=== PATIENT | female | born 1955 | race Caucasian/White ===

== ENCOUNTER 2019-04-30 05:15 | Inpatient (IN) | payer OTHER ==
[2019-04-30] MEDS ORDERED: ONDANSETRON 4 MG/2 ML VIAL IVPUSH ONE ×2 (05:23→07:57)
[2019-04-30] MEDS ORDERED: SODIUM CHLORIDE 0.9% 500 ML INFUS.BAG IV ONE (05:23)
--- NOTE | 2019-04-30 05:27 | PDOC ---
Attending Attestation - Resident Resident Name: Christoph Reavesnirmaladylon - ED Attending Attestation I have performed the following: I have examined & evaluated the patient, The case was reviewed & discussed with the resident, I agree w/resident's findings & plan - HPI HPI: 04/30/19 19:58 see resident hpi - Physicial Exam PE: 04/30/19 19:58 agree with resident rxam - Medical Decision Making 04/30/19 19:58 64-year-old female with syncopal episode and vomiting, visiting from [place] Patient had a witnessed syncopal episode in the emergency department as well as vomiting in the ED Case signed out to dayshift pending labs and imaging
--- NOTE | 2019-04-30 06:06 | PDOC ---
History of Present Illness - History of Present Illness Initial Comments: 64 year old female with PMH of HTN, depression, and GERD presenting from home after syncopizing on the bathroom floor. States that she arrived from [place] ( lives in [place]) on Sunday and visited her mother at [facility] where she ate some vegetarian chile. A few hours afterwards she began to feel nauseous and went to the bathroom, she then woke up on the floor and had a bump on the back of her head. This happened at 3:30 PM and the patient went back to her bed. Denies any postictal period or incontinence at the time. She felt generally weak and lightheaded but denies vertiginous symptoms, visual symptoms, chest pain, fevers , or other symptoms. She denies any recent illness but does state that her mother has been dealing with diarrhea for an unknown amount of time and that the bathroom in her mother's apartment had a putrid smell of diarrhea. 04/30/19 06:25 <Puja Reaves - Last Filed: 04/30/19 06:25> <Nestor Stone - Last Filed: 04/30/19 10:30> - General Chief Complaint: Injury Stated Complaint: FALL Time Seen by Provider: 04/30/19 05:26 Past History - Psycho Social/Smoking Cessation Hx Smoking History: Never smoked Hx Alcohol Use: No Drug/Substance Use Hx: No <Puja Reaves - Last Filed: 04/30/19 06:25> <Nestor Stone - Last Filed: 04/30/19 10:30> - Past Medical History Allergies/Adverse Reactions: Allergies Allergy/AdvReac Type Severity Reaction Status Date / Time Penicillins Allergy Verified 04/30/19 05:32 Sulfa (Sulfonamide Allergy Verified 04/30/19 05:33 Antibiotics) *Physical Exam - Vital Signs Last Vital Signs Temp Pulse Resp BP Pulse Ox 96 H 18 151/75 96 04/30/19 05:30 04/30/19 05:30 04/30/19 05:30 04/30/19 05:30 <Puja Reaves - Last Filed: 04/30/19 06:25> - Vital Signs Last Vital Signs Temp Pulse Resp BP Pulse Ox 98.3 F 96 H 18 151/75 96 04/30/19 05:30 04/30/19 05:30 04/30/19 05:30 04/30/19 05:30 04/30/19 05:30 <Nestor Stone - Last Filed: 04/30/19 10:30> ED Treatment Course - RADIOLOGY Radiology Studies Ordered: Category Date Time Status CERVICAL SPINE CT W/O CONTR [CT] Stat CT Scan 04/30/19 05:[address] WITHOUT CONTRAST [CT] Stat CT Scan 04/30/19 05:21 Taken <Puja Reaves - Last Filed: 04/30/19 06:25> - LABORATORY CBC & Chemistry Diagram: 04/30/19 06:27 04/30/19 06:27 - ADDITIONAL ORDERS Additional order review: Laboratory Results 04/30/19 04/30/19 06:27 06:27 Sodium 141 Potassium 3.6 Chloride 106 Carbon Dioxide 26 Anion Gap 10 BUN 21.6 H Creatinine 0.8 Est GFR (CKD-EPI)AfAm 89.04 Est GFR (CKD-EPI)NonAf 76.83 Random Glucose 130 H Calcium 9.1 Total Bilirubin 0.6 AST 18 ALT 28 Alkaline Phosphatase 53 Creatine Kinase 108 Troponin I < 0.02 Total Protein 7.1 Albumin 4.2 Lipase 60 L 04/30/19 06:27 RBC 4.81 MCV 79.1 L MCHC 32.4 RDW 16.0 H MPV 9.2 Neutrophils % No Result Required. Lymphocytes % No Result Required. - RADIOLOGY Radiology Studies Ordered: Category Date Time Status CHEST X-RAY PORTABLE* [RAD] Stat Radiology 04/30/19 07:50 Completed - Medications Given in the ED: ED Medications Discontinued Medications Generic Name Dose Route Start Last Admin Trade Name Freq PRN Reason Stop Dose Admin Ondansetron HCl 4 mg 04/30/19 05:23 04/30/19 06:33 Zofran Injection IVPUSH 04/30/19 05:24 4 mg ONCE ONE Administration Ondansetron HCl 4 mg 04/30/19 07:57 04/30/19 08:02 Zofran Injection IVPUSH 04/30/19 07:58 4 mg ONCE ONE Administration Sodium Chloride 1,000 ml 04/30/19 05:23 04/30/19 06:33 Normal Saline - IV 04/30/19 05:24 1,000 ml ONCE ONE Administration <Nestor Stone - Last Filed: 04/30/19 10:30> Discharge <Puja Reaves - Last Filed: 04/30/19 06:25> - Discharge Information Problems reviewed: Yes - Admission Yes <Nestor Stone - Last Filed: 04/30/19 10:30> - Discharge Information Clinical Impression/Diagnosis: Dehydration Syncope Qualifiers: Syncope type: unspecified Qualified Code(s): R55 - Syncope and collapse Condition: Fair
[2019-04-30] MEDS ORDERED: HEPARIN NA (PORCINE) 5,000 UNITS/ML 1ML VIAL ONE (06:36)
[2019-04-30 06:50] LABS: HEMOGLOBIN 12.3 GM/dL (10.7-15.3); MCH 25.6 pg (25.7-33.7); MCHC 32.4 g/dl (32.0-36.0); MEAN CELL VOLUME 79.1 fl (80-96); MEAN PLT VOLUME 9.2 fl (7.5-11.1); PLATELET COUNT 245 K/MM3 (134-434); RBC 4.81 M/mm3 (3.60-5.2); WHITE BLOOD COUNT 16.7 K/mm3 (4.0-10.0)
[2019-04-30 07:20] LABS: ALBUMIN 4.2 g/dl (3.4-5.0); BILIRUBIN,TOTAL 0.6 mg/dL (0.2-1); BLOOD UREA NITROGEN 21.6 mg/dL (7-18); CALCIUM 9.1 mg/dL (8.5-10.1); CREATININE 0.8 mg/dL (0.55-1.3); LIPASE 60 U/L (73-393); POTASSIUM 3.6 mmol/L (3.5-5.1); TOT PROT 7.1 g/dl (6.4-8.2)
[2019-04-30] MEDS ORDERED: SODIUM CHLORIDE 1,000 ML IV STA (07:56)
[2019-04-30] MEDS ORDERED: ONDANSETRON 4 MG/2 ML VIAL ONE (07:58)
--- NOTE | 2019-04-30 09:56 | EKG ---
Test Reason : Blood Pressure : / mmHG Vent. Rate : 062 BPM Atrial Rate : 062 BPM P-R Int : 182 ms QRS Dur : 090 ms QT Int : 428 ms P-R-T Axes : 052 005 058 degrees QTc Int : 434 ms NORMAL SINUS RHYTHM NORMAL ECG NO PREVIOUS ECGS AVAILABLE Confirmed by DARYL DODSON MD ([id number]) on 04/30/2019 9:55:24 AM Referred By: Confirmed By:DARYL DODSON MD
[2019-04-30 09:59] LABS: ANISOCYTOSIS 0; MACROCYTOSIS 0; PLATELET ESTIMATE NORMAL
[2019-04-30] MEDS ORDERED: ONDANSETRON 4 MG/2 ML VIAL IVPUSH PRN (10:45)
[2019-04-30] MEDS ORDERED: SODIUM PHOSPHATE/NA BIPHOS 133 ML ENEMA PR ONE (10:49)
[2019-04-30] MEDS ORDERED: SENNOSIDES 8.6MG TABLET (FP) PO PRN (10:49)
[2019-04-30] MEDS ORDERED: DOCUSATE SODIUM 100 MG CAPSULE (FP) PO ONE (11:11)
[2019-04-30] MEDS ORDERED: AZITHROMYCIN IVPB 500 MG/250 ML BAG IVPB ONE (11:12)
--- NOTE | 2019-04-30 11:31 | HP ---
CHIEF COMPLAINT: Syncope PCP: In [place] HISTORY OF PRESENT ILLNESS: Pt. is a 64 y.o. F w/ PMHx. of HTN, Depression, GERD , stress incontinence, L. Breast CA (s/p chemotherapy and radiation), and lymphedema presents after having a syncopal episode. Pt. states that while she was visiting her mother at [facility], who was having fould smelling "red diarrhea," she became nauseous and went to the bathroom to vomit. Pt. denies actually vomiting and states that she only remembers her mother waking her up at 3:30 pm whereupon she noticed a bump on the back of her head. Pt. does not recall the events but endorses that she bit her lip and leaked urine during that time. Pt. denies ever having seizures in the past. Pt. states that she has been drinking less fluids since she traveled to the [facility]. Pt. had vegetarian [place] prior to the vomiting episode. Pt. endorses constipation, last passed a "few mark" yesterday. Pt. was dizzy prior to the episode but denies any current dizziness, chest pain, shortness of breath, abdominal pain or nausea. In the ED Pt. had non -bloody emesis x 2 and had a syncopal episode with each event. Pt. endorses that her father suffered from vaso-vagal syncope. ER course was notable for: (1)NS x 1 L, Zofran x2 (2) Head CT -, CT CSpine - (3) CXR Recent Travel: Pt. flew in from [place] to visit her mother at [facility] and intends on flying out on Sunday. PAST MEDICAL HISTORY: As above PAST SURGICAL HISTORY: Bladder Sling, L. Breast lumpectomy, Hysterectomy Social History: Smokin.5 PPD x 21 years, Quit in 1999 Alcohol: Socially, drinks 1 glass of wine on occasion Drugs: Denies currently, Remote Marijuana use Allergies Penicillins Allergy (Verified 04/30/19 05:32) Sulfa (Sulfonamide Antibiotics) Allergy (Verified 04/30/19 05:33) HOME MEDICATIONS: Home Medications Medication Instructions Recorded Escitalopram Oxalate [Lexapro -] 15 mg PO DAILY 04/30/19 Esomeprazole Magnesium 20 mg PO DAILY 04/30/19 Hydrochlorothiazide [Hctz -] 12.5 mg PO DAILY 04/30/19 Spironolactone [Aldactone] 25 mg PO DAILY 04/30/19 REVIEW OF SYSTEMS As above PHYSICAL EXAMINATION Vital Signs - 24 hr 04/30/19 05:30 Temperature 98.3 F Pulse Rate 96 H Respiratory 18 Rate Blood Pressure 151/75 O2 Sat by Pulse 96 Oximetry (%) GENERAL: Awake, alert, and fully oriented, in no acute distress. HEAD: Posterior scalp hematoma EYES: Extraocular movements intact, sclera anicteric, conjunctiva clear. EARS, NOSE, THROAT: Ears normal, nares patent, oropharynx clear without exudates. Dry mucous membranes. NECK: Normal range of motion, supple without lymphadenopathy, JVD, or masses. No carotid Bruit LUNGS: Breath sounds equal, clear to auscultation bilaterally. No wheezes, and no crackles. No accessory muscle use. HEART: Tachycardic, regular rate and rhythm, normal S1 and S2 without murmur ABDOMEN: Soft, nontender, not distended, normoactive bowel sounds, no guarding, no rebound, no masses. MUSCULOSKELETAL: Normal range of motion at all joints. No bony deformities or tenderness. No CVA tenderness. UPPER EXTREMITIES: 2+ radial pulses, warm, well-perfused. No cyanosis. No clubbing. Left upper extremity lymphedema. LOWER EXTREMITIES: 2+ dorsal pedal pulses, warm, well-perfused. No calf tenderness. No peripheral edema. NEUROLOGICAL: Cranial nerves II-XII grossly intact. Normal speech. Gait not assessed. PSYCHIATRIC: Cooperative. Good eye contact. Appropriate mood and affect. SKIN: Warm, dry, normal turgor, no rashes or lesions noted, normal capillary refill. Laboratory Results - last 24 hr 04/30/19 04/30/19 04/30/19 06:27 06:27 06:27 WBC 16.7 H RBC 4.81 Hgb 12.3 Hct 38.0 MCV 79.1 L MCH 25.6 L MCHC 32.4 RDW 16.0 H Plt Count 245 MPV 9.2 Absolute Neuts (auto) 15.1 H Neutrophils % No Result Required. Neutrophils % (Manual) 85.0 H Band Neutrophils % 6.0 Lymphocytes % No Result Required. Lymphocytes % (Manual) 3.0 L Monocytes % (Manual) 6 Eosinophils % (Manual) 0.0 Basophils % (Manual) 0.0 Myelocytes % (Man) 0 Promyelocytes % (Man) 0 Blast Cells % (Manual) 0 Nucleated RBC % 0 Metamyelocytes 0 Hypochromia 0 Platelet Estimate Normal Polychromasia 0 Poikilocytosis 0 Anisocytosis 0 Microcytosis 0 Macrocytosis 0 Sodium 141 Potassium 3.6 Chloride 106 Carbon Dioxide 26 Anion Gap 10 BUN 21.6 H Creatinine 0.8 Est GFR (CKD-EPI)AfAm 89.04 Est GFR (CKD-EPI)NonAf 76.83 Random Glucose 130 H Calcium 9.1 Total Bilirubin 0.6 AST 18 ALT 28 Alkaline Phosphatase 53 Creatine Kinase 108 Troponin I < 0.02 Total Protein 7.1 Albumin 4.2 Lipase 60 L ASSESSMENT/PLAN: Pt. is a 64 y.o. F w/ PMHx. of HTN, Depression, GERD, stress incontinence, L. Breast CA (s/p chemotherapy and radiation), and lymphedema presents after having a syncopal episode. #Syncope Head CT - CSpine CT negative for acute pathology, did show chronic changes including C6- C7 central spinal stenosis EKG: NSR, 62 bpm, QTc: 434 Orthostatics Positive, Supine: 151/70 HR 96, Sittin/67 HR: 106 f/u Carotid Doppler f/u Echo CXR: shows possible RML vs. RLL infiltrates and diffuse haziness; will order CTA to r/o PE. c/w IVF and encourage PO intake Trop Negative Family Hx. of vaso-vagal syncope noted in addition to syncope happening 3 times each associated with vomiting. #HTN hold HCTZ and Aldactone continue to monitor BP #Leukocytosis WBC: 16.7 (85% Neutrophils) CXR appreciated, Pt. has been afebrile, likely secondary to inflammatory reaction to hematoma. Low threshold to initiate CAP antibiotics pending clinical status as Pt. may have aspirated during syncopal episodes #Constipation will give Fleet enema, Colace and Senna #Depression c/w Lexapro #GERD c/w Esomeprazole #FEN NS @ 100 monitor electrolytes and replete as needed Sodium controlled diet #DVT Ppx. Lovenox 40 SQ Visit type - Emergency Visit Emergency Visit: Yes ED Registration Date: 04/30/19 Care time: The patient presented to the Emergency Department on the above date and was hospitalized for further evaluation of their emergent condition. - New Patient This patient is new to me today: Yes Date on this admission: 04/30/19 - Critical Care Critical Care patient: No ATTENDING PHYSICIAN STATEMENT I saw and evaluated the patient. I reviewed the resident's note and discussed the case with the resident. I agree with the resident's findings and plan as documented. SUBJECTIVE: OBJECTIVE: ASSESSMENT AND PLAN:
[2019-04-30] MEDS: DOCUSATE SODIUM 100 MG CAPSULE (FP) PO SCH ×2 (11:37→21:08)
[2019-04-30] MEDS: ENOXAPARIN NA (PORCINE) 40 MG/0.4 ML DISP.SYRIN SQ SCH (11:41)
--- NOTE | 2019-04-30 13:53 | ECHO ---
Name: BREAAN ESPOSITO Exam:Adult Echocardiogram Study Date: 04/30/2019 12:39 PM Age: 64 yrs Height: 66 in Weight: 174 lb BSA: 1.9 m2 MMode/2D Measurements & Calculations IVSd: 1.00 cm Ao root diam: 2.8 cm LVIDd: 4.1 cm LA dimension: 3.3 cm LVIDs: 2.9 cm LVPWd: 1.4 cm LVPWs: 1.4 cm EDV(Teich): 73.5 ml ESV(Teich): 33.2 ml LVOT diam: 2.0 cm RV S Julian: 15.3 cm/sec Doppler Measurements & Calculations MV E max julian: 67.6 cm/sec Ao V2 max: 182.4 cm/sec MV A max julian: 111.1 cm/sec Ao max P.3 mmHg MV E/A: 0.61 MV dec time: 0.08 sec SHITAL(V,D): 2.0 cm2 LV V1 max P.8 mmHg TR max julian: 235.5 cm/sec LV V1 max: 119.9 cm/sec TR max P.2 mmHg PA V2 max: 139.8 cm/sec Med Peak E' Julian: 7.8 cm/sec PA max P.8 mmHg Med E/e': 8.7 Lat Peak E' Julian: 9.4 cm/sec Lat E/e': 7.2 Procedure A two-dimensional transthoracic echocardiogram with color flow and Doppler was performed. Left Ventricle The left ventricular size, thickness and function are normal. The left ventricular ejection fraction is normal. E/A reversal consistent with but not diagnostic of poor LV compliance. The left ventricular w all motion is normal. Right Ventricle The right ventricle is normal in size and function. A moderator band is seen in the right ventricle. Atria Normal left and right atrial size and function. Mitral Valve There is trivial mitral valve thickening. There is no mitral valve stenosis. There is trace to mild m itral regurgitation. Tricuspid Valve There is trivial tricuspid valve thickening. There is no tricuspid stenosis. There is trace tricuspid regurgitation. Right ventricular systolic pressure is normal. Aortic Valve The aortic valve is normal in structure and function. There is mild aortic valve thickening. There is mild aortic sclerosis.;. No hemodynamically significant valvular aortic stenosis. No aortic regurgitation is present. Pulmonic Valve The pulmonic valve is not well visualized. Great Vessels The aortic root is normal size. Pericardium/Pleura There is no pericardial effusion. Interpretation Summary The left ventricular size, thickness and function are normal The left ventricular ejection fraction is normal. The left ventricular wall motion is normal. There is trace to mild mitral regurgitation. There is trace tricuspid regurgitation. Right ventricular systolic pressure is normal. A moderator band is seen in the right ventricle. E/A reversal consistent with but not diagnostic of poor LV compliance There is mild aortic valve thickening. There is mild aortic sclerosis.; MD Luiz Ridley 04/30/2019 01:52 PM
--- NOTE | 2019-04-30 15:17 | PN ---
Teaching Attending Note Name of Resident: Benedicto Walters ATTENDING PHYSICIAN STATEMENT I saw and evaluated the patient. I reviewed the resident's note and discussed the case with the resident. I agree with the resident's findings and plan as documented. SUBJECTIVE: Pt. is a 64 y.o. F w/ PMHx. of HTN, Depression, GERD, stress incontinence, L. Breast CA (s/p chemotherapy and radiation),2002 and lymphedema presents after having a syncopal episode. Pt. states that while she was visiting her mother at [facility], who was having fould smelling "red diarrhea," she became nauseous and went to the bathroom to vomit. Pt. denies actually vomiting and states that she only remembers her mother waking her up at 3:30 pm whereupon she noticed a bump on the back of her head. she doesnt recall the events, no jerking of hands was noted, . Pt. denies ever having seizures in the past. Pt. states that she has been drinking less fluids since she traveled to the [facility]. Pt. had vegetarian [place] prior to the vomiting episode. Pt. endorses constipation no diarroea. Pt. was dizzy prior to the episode but denies any current dizziness, chest pain, shortness of breath, abdominal pain or nausea. In the ED Pt. had non-bloody emesis x 2 and had a syncopal episode with each event. Pt. states that her father suffered from vaso-vagal syncope. OBJECTIVE: a very pleasant middle aged woman, appears comfortable, nad, alert awake and oriented to 3, vitals stable, neck supple no jvd, cvs s1/s2/0 chest ctab abd benign ext no c/c/ edema L forearm, neuro non focal, ASSESSMENT AND PLAN: Pt. is a 64 y.o. F w/ PMHx. of HTN, Depression, GERD, stress incontinence, L. Breast CA (s/p chemotherapy and radiation), and lymphedema presents after having a syncopal episode. 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 unknown etiology, cta is negative , no embolism, carotid doppler is negative, Trop Negative will monitor on tele for 24 h, and check the cardiac markers, and hold diuretics , and supplement k , get the cardiology consult, 2)HTN hold HCTZ and Aldactone continue to monitor BP 3)Leukocytosis WBC: 16.7 (85% Neutrophils) is febrile , and asymptomatic, will check urine and c&s , and also repeat cbc, and give one dose of levaquin, and will check repeat, r.o sepsis as cause of the syncope, 4)Depression c/w Lexapro 5)GERD c/w Esomeprazole #DVT Ppx. Lovenox 40 SQ
[2019-04-30] MEDS: SODIUM CHLORIDE 1,000 ML IV SCH (15:41)
[2019-04-30] MEDS ORDERED: POTASSIUM CHLORIDE TABS 20 MEQ TABLET.ER (FP) PO ONE (16:19)
[2019-04-30] MEDS ORDERED: ACETAMINOPHEN 325 MG TABLET (FP) PO PRN (17:10)
[2019-04-30 17:16] VITALS: BMI 27.9
[2019-04-30] MEDS: PANTOPRAZOLE 20 MG TABLET PO SCH (18:02)
[2019-05-01 06:49] LABS: BASO % 0.5 % (0-2.0); EOS % 0.7 % (0-4.5); HEMATOCRIT 31.3 % (32.4-45.2); HEMOGLOBIN 10.1 GM/dL (10.7-15.3); LYMPH % 18.6 % (8-40); MCH 25.5 pg (25.7-33.7); MCHC 32.4 g/dl (32.0-36.0); MEAN CELL VOLUME 78.7 fl (80-96); MEAN PLT VOLUME 9.2 fl (7.5-11.1); MONO % 8.1 % (3.8-10.2); NEUT % 72.1 % (42.8-82.8); PLATELET COUNT 192 K/MM3 (134-434); RBC 3.97 M/mm3 (3.60-5.2); WHITE BLOOD COUNT 8.5 K/mm3 (4.0-10.0)
[2019-05-01 07:10] LABS: BLOOD UREA NITROGEN 9.4 mg/dL (7-18); CALCIUM 7.6 mg/dL (8.5-10.1); CREATININE 0.6 mg/dL (0.55-1.3); PHOSPHOROUS 2.8 mg/dL (2.5-4.9); POTASSIUM 3.2 mmol/L (3.5-5.1)
[2019-05-01 08:51] LABS: URINE APPEARANCE CLEAR; URINE BILIRUBIN NEGATIVE (NEGATIVE); URINE COLOR YELLOW; URINE GLUCOSE (UA) NEGATIVE (NEGATIVE); URINE KETONE NEGATIVE (NEGATIVE); URINE LEUK ESTERASE NEGATIVE (NEGATIVE); URINE NITRITE NEGATIVE (NEGATIVE); URINE PROTEIN NEGATIVE (NEGATIVE)
[2019-05-01] MEDS: PANTOPRAZOLE 20 MG TABLET PO SCH (10:07)
[2019-05-01] MEDS: ENOXAPARIN NA (PORCINE) 40 MG/0.4 ML DISP.SYRIN SQ SCH (10:07)
[2019-05-01] MEDS: DOCUSATE SODIUM 100 MG CAPSULE (FP) PO SCH (10:08)
[2019-05-01] MEDS: SODIUM CHLORIDE 1,000 ML IV SCH (10:08)
[2019-05-01] MEDS ORDERED: POTASSIUM CHLORIDE TABS 20 MEQ TABLET.ER (FP) PO ONE (11:52)
[2019-05-01] MEDS ORDERED: POTASSIUM CHLORIDE TABS 20 MEQ TABLET.ER (FP) PO SCH (12:00)
[2019-05-01] MEDS: KCL 10 MEQ IVPB 10 MEQ/100 ML INFUS.BAG IVPB SCH ×3 (12:43→17:45)
--- NOTE | 2019-05-01 16:45 | PN ---
Physical Exam: SUBJECTIVE: Patient seen and examined NAEON Tele: 10beats of Vtach Denies nausea, dizziness, lightheadedness, chest pain/pressure, SOB OBJECTIVE: Vital Signs Period Temp Pulse Resp BP Sys/Garcia Pulse Ox Last 24 Hr 98.0 F-99.1 F 75-103 18-18 117-154/51-89 95-98 GENERAL: The patient is awake, alert, and fully oriented, in no acute distress. HEAD: NC. Right posterior scalp hematoma w/ significant TTP EYES: PERRL, extraocular movements intact, sclera anicteric, conjunctiva clear. No ptosis. ENT: Ears normal, nares patent, oropharynx clear without exudates, moist mucous membranes. NECK: Trachea midline, full range of motion, supple. LUNGS: Breath sounds equal, clear to auscultation bilaterally, no wheezes, no crackles, no accessory muscle use. HEART: Regular rate and rhythm, S1, S2 without murmur, rub or gallop. ABDOMEN: Soft, nontender, nondistended, normoactive bowel sounds, no guarding, no rebound. EXTREMITIES: 2+ pulses, warm, well-perfused, no edema. LUE with lymphedema sleeve in place NEUROLOGICAL: Cranial nerves II through XII grossly intact. Normal speech. PSYCH: Normal mood, normal affect. SKIN: Warm, dry, normal turgor, no rashes or lesions noted Laboratory Results - last 24 hr 05/01/19 05/01/19 05/01/19 05:47 05:47 08:00 WBC 8.5 RBC 3.97 Hgb 10.1 L Hct 31.3 L D MCV 78.7 L MCH 25.5 L MCHC 32.4 RDW 16.0 H Plt Count 192 D MPV 9.2 Absolute Neuts (auto) 6.2 Neutrophils % 72.1 Lymphocytes % 18.6 Monocytes % 8.1 Eosinophils % 0.7 Basophils % 0.5 Nucleated RBC % 0 Sodium 143 Potassium 3.2 L Chloride 112 H Carbon Dioxide 27 Anion Gap 5 L BUN 9.4 Creatinine 0.6 Est GFR (CKD-EPI)AfAm 110.08 Est GFR (CKD-EPI)NonAf 94.98 Random Glucose 105 Calcium 7.6 L Phosphorus 2.8 Magnesium 2.0 Urine Color Yellow Urine Appearance Clear Urine pH 6.0 Ur Specific [place] 1.011 Urine Protein Negative Urine Glucose (UA) Negative Urine Ketones Negative Urine Blood Negative Urine Nitrite Negative Urine Bilirubin Negative Urine Urobilinogen 1.0 Ur Leukocyte Esterase Negative Active Medications Generic Name Dose Route Start Last Admin Trade Name Tanq PRN Reason Stop Dose Admin Acetaminophen 650 mg 04/30/19 17:10 04/30/19 18:02 Tylenol - PO 650 mg Q6H PRN Administration Fever Or Pain Docusate Sodium 100 mg 04/30/19 11:00 05/01/19 10:08 Colace - PO 100 mg BID KAPIL Administration Enoxaparin Sodium 40 mg 04/30/19 11:00 05/01/19 10:07 Lovenox - SQ 40 mg DAILY KAPIL Administration Sodium Chloride 1,000 mls @ 100 mls/hr 04/30/19 10:30 05/01/19 10:08 Normal Saline - IV 05/01/19 20:29 100 mls/hr ASDIR KAPIL Administration Ondansetron HCl 4 mg 04/30/19 10:45 04/30/19 18:37 Zofran Injection IVPUSH 4 mg Q6H PRN Administration NAUSEA Pantoprazole Sodium 20 mg 04/30/19 16:45 05/01/19 10:07 Protonix - PO 20 mg DAILY KAPIL Administration Senna 2 tab 04/30/19 10:49 Senna - PO HS PRN CONSTIPATION ASSESSMENT/PLAN: 64 y.o. F w/ PMHx. of HTN, Depression, GERD, stress incontinence, L. Breast CA ( s/p chemotherapy and radiation), and LUE lymphedema presents after having a syncopal episode and hitting head on floor after vomiting. CTH showing Right- sided scalp hematoma. CT-cspine w/ DJD and C6-C7 central spinal stenosis. Asymptomatic from spinal stenosis. Carotid duplex neg for significant stenosis. Echo was grossly normal. CTA neg for PE. CXR neg. Received levaquin x1 for HCAP , abx stopped. Tele monitor showing Vtach [id number], prompted Cardio(Guille) consult. #Syncope likely 2/2 vasovagal > Head CT: Right partietal scalp hematoma > CSpine CT: negative for acute pathology, did show chronic changes including C6 -C7 central spinal stenosis > EKG: NSR, 62 bpm, QTc: 434 > Orthostatics Positive, Supine: 151/70 HR 96, Sittin/67 HR: 106 > Carotid Doppler: neg for carotid stenosis > Echo: normal > CXR: shows possible RML vs. RLL infiltrates and diffuse haziness; will order CTA to r/o PE. c/w IVF and encourage PO intake Trop Negative Family Hx. of vaso-vagal syncope noted in addition to syncope happening 3 times each associated with vomiting. #HTN hold HCTZ and Aldactone continue to monitor BP #Leukocytosis --improved WBC: 16.7 (85% Neutrophils) --> 8.5 CXR appreciated, Pt. has been afebrile, likely secondary to inflammatory reaction to hematoma. Low threshold to initiate CAP antibiotics pending clinical status as Pt. may have aspirated during syncopal episodes - abx stopped on 05/01/19 #Constipation -s/p Fleet enema, Colace and Senna #Depression c/w Lexapro #GERD c/w Esomeprazole #FEN NS @ 100 monitor electrolytes and replete as needed Sodium controlled diet Visit type - Emergency Visit Emergency Visit: No - New Patient This patient is new to me today: Yes Date on this admission: 05/01/19 - Critical Care Critical Care patient: No ATTENDING PHYSICIAN STATEMENT I saw and evaluated the patient. I reviewed the resident's note and discussed the case with the resident. I agree with the resident's findings and plan as documented. SUBJECTIVE: OBJECTIVE: ASSESSMENT AND PLAN:
--- NOTE | 2019-05-01 20:38 | PN ---
Teaching Attending Note Name of Resident: Adam Wiggins ATTENDING PHYSICIAN STATEMENT I saw and evaluated the patient. I reviewed the resident's note and discussed the case with the resident. I agree with the resident's findings and plan as documented. SUBJECTIVE: patient is feeling better with no acute distress, she doesn't recall what happened. OBJECTIVE: Vital Signs Temperature 99.1 F 05/01/19 18:00 Pulse Rate 77 05/01/19 18:00 Respiratory Rate 18 05/01/19 18:00 Blood Pressure 132/56 L 05/01/19 18:00 O2 Sat by Pulse Oximetry (%) 95 05/01/19 09:00 GENERAL: The patient is awake, alert, and fully oriented, in no acute distress. HEAD: Normal with no signs of trauma. EYES: PERRL, extraocular movements intact, sclera anicteric, conjunctiva clear. ENT: Ears normal, oropharynx clear without exudates, moist mucous membranes. NECK: Trachea midline, full range of motion, supple. LUNGS: Breath sounds equal, clear to auscultation bilaterally, no wheezes, no crackles, no accessory muscle use. HEART: Regular rate and rhythm, S1, S2 without murmur, rub or gallop. ABDOMEN: Soft, nontender, nondistended, normoactive bowel sounds, no guarding, no rebound, no hepatosplenomegaly, no masses. EXTREMITIES: 2+ pulses, warm, well-perfused, no edema. NEUROLOGICAL: Cranial nerves II through XII grossly intact. Normal speech, gait not observed. PSYCH: Normal mood, normal affect. SKIN: Warm, dry, normal turgor, no rashes or lesions noted CBCD WBC 8.5 K/mm3 (4.0-10.0) 05/01/19 05:47 RBC 3.97 M/mm3 (3.60-5.2) 05/01/19 05:47 Hgb 10.1 GM/dL (10.7-15.3) L 05/01/19 05:47 Hct 31.3 % (32.4-45.2) L D 05/01/19 05:47 MCV 78.7 fl (80-96) L 05/01/19 05:47 MCHC 32.4 g/dl (32.0-36.0) 05/01/19 05:47 RDW 16.0 % (11.6-15.6) H 05/01/19 05:47 Plt Count 192 K/MM3 (134-434) D 05/01/19 05:47 MPV 9.2 fl (7.5-11.1) 05/01/19 05:47 CMP Sodium 143 mmol/L (136-145) 05/01/19 05:47 Potassium 3.2 mmol/L (3.5-5.1) L 05/01/19 05:47 Chloride 112 mmol/L (98-107) H 05/01/19 05:47 Carbon Dioxide 27 mmol/L (21-32) 05/01/19 05:47 Anion Gap 5 MMOL/L (8-16) L 05/01/19 05:47 BUN 9.4 mg/dL (7-18) 05/01/19 05:47 Creatinine 0.6 mg/dL (0.55-1.3) 05/01/19 05:47 Random Glucose 105 mg/dL (74-106) 05/01/19 05:47 Calcium 7.6 mg/dL (8.5-10.1) L 05/01/19 05:47 Total Bilirubin 0.6 mg/dL (0.2-1) 04/30/19 06:27 AST 18 U/L (15-37) 04/30/19 06:27 ALT 28 U/L (13-61) 04/30/19 06:27 Alkaline Phosphatase 53 U/L (45-117) 04/30/19 06:27 Total Protein 7.1 g/dl (6.4-8.2) 04/30/19 06:27 Albumin 4.2 g/dl (3.4-5.0) 04/30/19 06:27 CARDIAC ENZYMES Creatine Kinase 108 U/L (26-192) 04/30/19 06:27 Troponin I < 0.02 ng/ml (0.00-0.05) 04/30/19 06:27 Current Medications Generic Name Dose Route Start Last Admin Trade Name Freq PRN Reason Stop Dose Admin Acetaminophen 650 mg 04/30/19 17:10 04/30/19 18:02 Tylenol - PO 650 mg Q6H PRN Administration Fever Or Pain Docusate Sodium 200 mg 05/01/19 22:00 Colace - PO HS KAPIL Enoxaparin Sodium 40 mg 01/15/20 11:00 05/01/19 10:07 Lovenox - SQ 40 mg DAILY COUNTS INCLUDE 234 BEDS AT THE [facility] Administration Potassium Chloride 40 meq 05/02/19 10:00 K-Dur - PO DAILY COUNTS INCLUDE 234 BEDS AT THE [facility] Home Medications Medication Instructions Recorded Escitalopram Oxalate [Lexapro -] 15 mg PO DAILY 04/30/19 Esomeprazole Magnesium 20 mg PO DAILY 04/30/19 Hydrochlorothiazide [Hctz -] 12.5 mg PO DAILY 04/30/19 Spironolactone [Aldactone] 25 mg PO DAILY 04/30/19 ASSESSMENT AND PLAN: Pt. is a 64 y.o. F w/ PMHx. of HTN, Depression, GERD, stress incontinence, L. Breast CA (s/p chemotherapy and radiation), and lymphedema presents after having a syncopal episode. #P-afib on the monitor , will optimize the K above 4.0, mag above 2.o , will get cardio to see the patient, needs to be cleared before travelling back to [facility]. cardio consult dr Delatorre , ekg in am #Syncope most likely due to having arrythmia # acute dehydration s/p ivf #HTN: hold HCTZ and Aldactone # Leukocytosis improved #Depression continue Lexapro # hx of GERD on Esomeprazole. DVT Ppx; Lovenox 40 SQ
[2019-05-01] MEDS ORDERED: DOCUSATE SODIUM 100 MG CAPSULE (FP) PO SCH (22:00)
[2019-05-02 06:40] LABS: HEMATOCRIT 31.4 % (32.4-45.2); HEMOGLOBIN 10.3 GM/dL (10.7-15.3); MCH 25.7 pg (25.7-33.7); MCHC 32.9 g/dl (32.0-36.0); MEAN CELL VOLUME 78.1 fl (80-96); MEAN PLT VOLUME 8.8 fl (7.5-11.1); PLATELET COUNT 194 K/MM3 (134-434); RBC 4.02 M/mm3 (3.60-5.2); RDW 16.3 % (11.6-15.6); WHITE BLOOD COUNT 6.2 K/mm3 (4.0-10.0)
[2019-05-02 07:07] LABS: ALBUMIN 3.2 g/dl (3.4-5.0); BILIRUBIN,TOTAL 0.2 mg/dL (0.2-1); BLOOD UREA NITROGEN 8.9 mg/dL (7-18); CALCIUM 8.1 mg/dL (8.5-10.1); CREATININE 0.5 mg/dL (0.55-1.3); PHOSPHOROUS 2.7 mg/dL (2.5-4.9); POTASSIUM 3.9 mmol/L (3.5-5.1); TOT PROT 5.6 g/dl (6.4-8.2)
[2019-05-02] MEDS ORDERED: POTASSIUM CHLORIDE TABS 10 MEQ TABLET.ER (FP) PO ONE (07:40)
[2019-05-02] MEDS ORDERED: NAPH,MB-DB/K PH,MBDB POWDER PACKET PO ONE (08:00)
[2019-05-02] MEDS: ENOXAPARIN NA (PORCINE) 40 MG/0.4 ML DISP.SYRIN SQ SCH (09:29)
[2019-05-02] MEDS ORDERED: POTASSIUM CHLORIDE TABS 20 MEQ TABLET.ER (FP) PO SCH (10:00)
--- NOTE | 2019-05-02 10:10 | CON.CARD ---
Consult Consult Specialty:: Cardiology Referred by:: Dr. Chang Reason for Consultation:: Abnl telemetry - History of Present Illness Chief Complaint: dizziness History of Present Illness: 64F w/ HTN, h/o breast CA, remote h/o esophageal ulcerations 2010 admitted with acute vertigo sx (dizzines/nausea) and syncope in that setting. Work up including chest CTA, echo, carotid US and head CT showed no acute path, nl EF. Yesterday on tele had 9 beat run of IRREGULAR wide complex tachy c/w PAF w/ aberrancy. ROS: + occasional palps No CP, SOB, edema, PND or orthopnea Lives in [facility], sees cardio there for HTN. Has never had a GI bleed. 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: Alzheimer's, CVA, Dementia, Migraine, Multiple Sclerosis, Peripheral Neuropathy, Parkinson's, Seizure, Syncope, TIA, Vertigo, Other Cardio/Vascular: Yes: HTN Pulmonary: No: Asthma, Bronchitis, Cancer, COPD, O2 Dependent, Pneumonia, Previously Intubated, Pulmonary Embolus, Pulmonary Fibrosis, Sleep Apnea, Other Gastrointestinal: Yes: Other (esophageal ulcerations) Hepatobiliary: No: Cirrhosis, Cholelithiasis, Cholecystitis, Choledocholithiasis , Hepatitis A, Hepatitis B, Hepatitis C, Other Renal/: No: Renal Failure, Renal Inusuff, BPH, Cancer, Hematuria, Hemodialysis , Neurogenic Bladder, Renal Calculi, UTI, Other Heme/Onc: Yes: Other (BReast CA s/p lumpectomy, XRT chemo early ) Infectious Disease: No: AIDS, C-Diff, Herpes Zoster, HIV, MRSA, STD's, Tuberculosis, VREF, Other Rheumatology: No: Fibromyalgia, Gout, Lupus, Rheumatoid Arthritis, Sarcoidosis, Vasculitis, Other ENT: No: Allergic Rhinitis, Sinusitis, Other Endocrine: No: Brice's Disease, Heidi's Disease, Diabetes Insipidus, Diabetes Mellitus, Hyperparathyroidism, Hyperthyroidism, Hypothyroidism, Osteopenia, SIADH, Other - Alcohol/Substance Use Hx Alcohol Use: No - Smoking History Smoking history: Never smoked - Social History History of Recent Travel: No Home Medications - Allergies Allergies/Adverse Reactions: Allergies Allergy/AdvReac Type Severity Reaction Status Date / Time Penicillins Allergy Verified 04/30/19 05:32 Sulfa (Sulfonamide Allergy Verified 04/30/19 05:33 Antibiotics) - Home Medications Home Medications: Ambulatory Orders Escitalopram Oxalate [Lexapro -] 15 mg PO DAILY 04/30/19 Esomeprazole Magnesium 20 mg PO DAILY 04/30/19 Hydrochlorothiazide [Hctz -] 12.5 mg PO DAILY 04/30/19 Spironolactone [Aldactone] 25 mg PO DAILY 04/30/19 Family Medical History Family History: Unremarkable (Mother had AF) Review of Systems - Review of Systems Constitutional: reports: No Symptoms Eyes: reports: No Symptoms HENT: reports: No Symptoms Neck: reports: No Symptoms Cardiovascular: reports: Palpitations Respiratory: reports: No Symptoms Gastrointestinal: reports: No Symptoms Genitourinary: reports: No Symptoms Breasts: reports: No Symptoms Reported Musculoskeletal: reports: No Symptoms Integumentary: reports: No Symptoms Neurological: reports: No Symptoms Endocrine: reports: No Symptoms Hematology/Lymphatic: reports: No Symptoms Psychiatric: reports: No Symptoms - Risk Factors Known Risk Factors: Yes: Hypertension Vital Signs: Vital Signs Temperature 99.8 F H 05/02/19 09:19 Pulse Rate 82 05/02/19 09:19 Respiratory Rate 20 05/02/19 09:19 Blood Pressure 161/91 05/02/19 09:19 O2 Sat by Pulse Oximetry (%) 97 05/01/19 21:00 Constitutional: Yes: No Distress, Calm Eyes: Yes: Conjunctiva Clear, EOM Intact HENT: Yes: Atraumatic, Normocephalic, Tonsillar Exudate Respiratory: Yes: CTA Bilaterally Gastrointestinal: Yes: Soft (NT) Cardiovascular: Yes: Regular Rate and Rhythm JVD: No Carotid Bruit: No Heart Sounds: Yes: S1, S2 (rrr, no M/R/G) Edema: No Peripheral Pulses WNL: Yes Neurological: Yes: Alert, Oriented - Other Data Labs, Other Data: CBC, BMP 05/02/19 05:47 05/02/19 05:47 Imaging - Results EKG: Image Reviewed (NSR 77, LVH, QT = 439) Assessment/Plan IMP: Probable acute vertigo, head CT negative Chronic HTN Remote h/o breast CA PAF ([id number] score = 3) REC: 1. Pt had a 9- 10 beat run of irregular, wide complex tachycardia that is most c /w PAF w/ aberrancy. She also has chronic palpitations. In light of her [id number] score, have discussed with her the benefits of AC and reviewed the risks. She has agreed to start Eliquis 5mg BID. 2. Should f/u with her meter inspector in [place] for more extended outpt monitoring. 3. Continue PPI; remote h/o esophageal ulcers discovered in 2010 endoscopy done due to her father's h/o esophageal CA. She has never had a GI bleed.
--- NOTE | 2019-05-02 13:18 | EKG ---
Test Reason : Blood Pressure : / mmHG Vent. Rate : 077 BPM Atrial Rate : 077 BPM P-R Int : 164 ms QRS Dur : 092 ms QT Int : 388 ms P-R-T Axes : 038 -18 018 degrees QTc Int : 439 ms NORMAL SINUS RHYTHM MINIMAL VOLTAGE CRITERIA FOR LVH, MAY BE NORMAL VARIANT WHEN COMPARED WITH ECG OF 30-APR-2019 06:07, NONSPECIFIC T WAVE ABNORMALITY NO LONGER EVIDENT IN ANTEROLATERAL LEADS Confirmed by ISREAL GARCIA MD ([id number]) on 05/02/2019 1:17:40 PM Referred By: ONEIDA CHOE Confirmed By:ISREAL GARCIA MD
--- NOTE | 2019-05-02 14:42 | PN ---
Teaching Attending Note Name of Resident: Adam Wiggins ATTENDING PHYSICIAN STATEMENT I saw and evaluated the patient. I reviewed the resident's note and discussed the case with the resident. I agree with the resident's findings and plan as documented. SUBJECTIVE: Vital Signs Temperature 99.8 F H 05/02/19 09:19 Pulse Rate 82 05/02/19 09:19 Respiratory Rate 20 05/02/19 09:19 Blood Pressure 161/91 05/02/19 09:19 O2 Sat by Pulse Oximetry (%) 95 05/02/19 09:00 GENERAL: The patient is awake, alert, and fully oriented, in no acute distress. HEAD: Normal with no signs of trauma. EYES: PERRL, extraocular movements intact, sclera anicteric, conjunctiva clear. ENT: Ears normal, oropharynx clear without exudates, moist mucous membranes. NECK: Trachea midline, full range of motion, supple. LUNGS: Breath sounds equal, clear to auscultation bilaterally, no wheezes, no crackles, no accessory muscle use. HEART: Regular rate and rhythm, S1, S2 without murmur, rub or gallop. ABDOMEN: Soft, nontender, nondistended, normoactive bowel sounds, no guarding, no rebound, no hepatosplenomegaly, no masses. EXTREMITIES: 2+ pulses, warm, well-perfused, no edema. NEUROLOGICAL: Cranial nerves II through XII grossly intact. Normal speech, gait not observed. PSYCH: Normal mood, normal affect. SKIN: Warm, dry, normal turgor, no rashes or lesions noted CBCD WBC 6.2 K/mm3 (4.0-10.0) 05/02/19 05:47 RBC 4.02 M/mm3 (3.60-5.2) 05/02/19 05:47 Hgb 10.3 GM/dL (10.7-15.3) L 05/02/19 05:47 Hct 31.4 % (32.4-45.2) L 05/02/19 05:47 MCV 78.1 fl (80-96) L 05/02/19 05:47 MCHC 32.9 g/dl (32.0-36.0) 05/02/19 05:47 RDW 16.3 % (11.6-15.6) H 05/02/19 05:47 Plt Count 194 K/MM3 (134-434) 05/02/19 05:47 MPV 8.8 fl (7.5-11.1) 05/02/19 05:47 CMP Sodium 143 mmol/L (136-145) 05/02/19 05:47 Potassium 3.9 mmol/L (3.5-5.1) 05/02/19 05:47 Chloride 112 mmol/L (98-107) H 05/02/19 05:47 Carbon Dioxide 27 mmol/L (21-32) 05/02/19 05:47 Anion Gap 3 MMOL/L (8-16) L 05/02/19 05:47 BUN 8.9 mg/dL (7-18) 05/02/19 05:47 Creatinine 0.5 mg/dL (0.55-1.3) L 05/02/19 05:47 Random Glucose 93 mg/dL (74-106) 05/02/19 05:47 Calcium 8.1 mg/dL (8.5-10.1) L 05/02/19 05:47 Total Bilirubin 0.2 mg/dL (0.2-1) 05/02/19 05:47 AST 17 U/L (15-37) 05/02/19 05:47 ALT 23 U/L (13-61) 05/02/19 05:47 Alkaline Phosphatase 40 U/L (45-117) L 05/02/19 05:47 Total Protein 5.6 g/dl (6.4-8.2) L 05/02/19 05:47 Albumin 3.2 g/dl (3.4-5.0) L 05/02/19 05:47 CARDIAC ENZYMES Creatine Kinase 108 U/L (26-192) 04/30/19 06:27 Troponin I < 0.02 ng/ml (0.00-0.05) 04/30/19 06:27 Home Medications Medication Instructions Recorded Escitalopram Oxalate [Lexapro -] 15 mg PO DAILY 04/30/19 Esomeprazole Magnesium 20 mg PO DAILY 04/30/19 Hydrochlorothiazide [Hctz -] 12.5 mg PO DAILY 04/30/19 Spironolactone [Aldactone] 25 mg PO DAILY 04/30/19 Current Medications Generic Name Dose Route Start Last Admin Trade Name Freq PRN Reason Stop Dose Admin Acetaminophen 650 mg 04/30/19 17:10 04/30/19 18:02 Tylenol - PO 650 mg Q6H PRN Administration Fever Or Pain Docusate Sodium 200 mg 05/01/19 22:00 05/01/19 22:13 Colace - PO 200 mg HS KAPIL Administration Enoxaparin Sodium 40 mg 04/30/19 11:00 05/02/19 09:29 Lovenox - SQ 40 mg DAILY KAPIL Administration Potassium Chloride 40 meq 05/02/19 10:00 05/02/19 09:27 K-Dur - PO 40 meq DAILY KAPIL Administration Discussed with , EKG is more Pafib , since irregular, but EKG is back to normal. ASSESSMENT AND PLAN: Pt. is a 64 y.o. F w/ PMHx. of HTN, Depression, GERD, stress incontinence, L. Breast CA (s/p chemotherapy and radiation), and lymphedema presents after having a syncopal episode. #P-afib on the monitor , NL K above 4.0, mag above 2.o , as per cardio is Pafib to start the patient on eliquis 5mg po bid, patient can travel in am . repeat EKG is NSR. #Syncope most likely due to having Pafib, given a copy of her EKG to take it back to [place] with her. # acute dehydration s/p ivf #HTN: hold HCTZ and Aldactone # Leukocytosis improved #Depression continue Lexapro # hx of GERD on Esomeprazole. DVT Ppx; Lovenox 40 SQ
[2019-05-02 15:11] VITALS: BP 140/80; PULSE 80; TEMP 98.9
--- NOTE | 2019-05-02 16:35 | DS ---
Physical Exam: SUBJECTIVE: Patient seen and examined OBJECTIVE: Vital Signs Period Temp Pulse Resp BP Sys/Garcia Pulse Ox Last 24 Hr 98.1 F-99.8 F 74-82 16-20 132-161/56-91 95-97 PHYSICAL EXAM GENERAL: The patient is awake, alert, and fully oriented, in no acute distress. HEAD: NC. Right posterior scalp hematoma w/ significant TTP EYES: PERRL, extraocular movements intact, sclera anicteric, conjunctiva clear. No ptosis. ENT: Ears normal, nares patent, oropharynx clear without exudates, moist mucous membranes. NECK: Trachea midline, full range of motion, supple. LUNGS: Breath sounds equal, clear to auscultation bilaterally, no wheezes, no crackles, no accessory muscle use. HEART: Regular rate and rhythm, S1, S2 without murmur, rub or gallop. ABDOMEN: Soft, nontender, nondistended, normoactive bowel sounds, no guarding, no rebound. EXTREMITIES: 2+ pulses, warm, well-perfused, no edema. LUE with lymphedema sleeve in place NEUROLOGICAL: Cranial nerves II through XII grossly intact. Normal speech. PSYCH: Normal mood, normal affect. SKIN: Warm, dry, normal turgor, no rashes or lesions noted LABS Laboratory Results - last 24 hr 05/02/19 05/02/19 05:47 05:47 WBC 6.2 RBC 4.02 Hgb 10.3 L Hct 31.4 L MCV 78.1 L MCH 25.7 MCHC 32.9 RDW 16.3 H Plt Count 194 MPV 8.8 Sodium 143 Potassium 3.9 Chloride 112 H Carbon Dioxide 27 Anion Gap 3 L BUN 8.9 Creatinine 0.5 L Est GFR (CKD-EPI)AfAm 116.89 Est GFR (CKD-EPI)NonAf 100.85 Random Glucose 93 Calcium 8.1 L Phosphorus 2.7 Magnesium 2.0 Total Bilirubin 0.2 AST 17 ALT 23 Alkaline Phosphatase 40 L Total Protein 5.6 L Albumin 3.2 L HOSPITAL COURSE: Date of Admission:05/01/19 Date of Discharge: 05/02/19 64 y.o. F w/ PMHx. of HTN, Depression, GERD, stress incontinence, L. Breast CA ( s/p chemotherapy and radiation), and LUE lymphedema presents after having a syncopal episode and hitting head on floor after vomiting. CTH showing Right- sided scalp hematoma. CT-cspine w/ DJD and C6-C7 central spinal stenosis. Asymptomatic from spinal stenosis. Carotid duplex neg for significant stenosis. Echo was grossly normal. CTA neg for PE. CXR neg. Received levaquin x1 empirically for HCAP, but abx stopped. Tele monitor showing Vtach [id number], prompted Cardio(Guille) consult. Cardiology recommended Eliquis 5mg BID. Meds to bed. Patient stable for discharge back to [facility]. Minutes to complete discharge: 35 Discharge Summary Problems reviewed: Yes Reason For Visit: SYNCOPE Current Active Problems Dehydration (Acute) Syncope (Acute) Condition: Stable - Instructions Diet, Activity, Other Instructions: You were evaluated in the hospital after losing consciousness. Cardiac imaging was normal. There was no stenosis of your carotid arteries. Cardiac monitoring showed that you had an episode of an irregular heart rhythm (paroxysmal Atrial Fibrillation). A technology auditor evaluated you and recommended starting an anticoagulant (Eliquis). MEDICATIONS: - NEW medications: --Apixaban [ELIQUIS] 5mg, taken every 12 hours - continue with your previously prescribed medications Additional Instructions: - avoid factors that can increase your fall risk as the anticoagulant medication can increase your risk of bleeding/ bruising. Please follow-up with the physicians below within 1-2weeks: - Primary Care Physician: to discuss your recent hospitalization, episode of loss of consciousness, CT imaging showing degenerative disc disease and central spinal stenosis - Yarn Texturing Machine Operator: to discuss your diagnosis of Paroxysmal Atrial Fibrillation, and the Eliquis regimen. A referral to the technology auditor you saw while hospitalized (Dr. Capps) has been provided. Please seek immediate medical evaluation if you experience: - episodes of loss of consciousness - chest pain, trouble breathing, palpitations, worsening symptoms. Referrals: Kris Capps MD [Staff Physician] - Disposition: HOME - Home Medications Comprehensive Discharge Medication List: Ambulatory Orders Escitalopram Oxalate [Lexapro -] 15 mg PO DAILY 04/30/19 Esomeprazole Magnesium 20 mg PO DAILY 04/30/19 Hydrochlorothiazide [Hctz -] 12.5 mg PO DAILY 04/30/19 Spironolactone [Aldactone] 25 mg PO DAILY 04/30/19 Apixaban [Eliquis -] 5 mg PO BID #60 tablet 05/02/19 This patient is new to me today: No Emergency Visit: No Critical Care patient: No - Discharge Referral Referred to [facility] Med [facility] No ATTENDING PHYSICIAN STATEMENT I saw and evaluated the patient. I reviewed the resident's note and discussed the case with the resident. I agree with the resident's findings and plan as documented. SUBJECTIVE: OBJECTIVE: ASSESSMENT AND PLAN:
== END 2019-05-02 16:58 | disposition home or self-care (01) | DRG 641 ==
LOC: JER 05:15 → JERBED 10:30 → J4W 16:07 → OBSVTOIN 05-01 11:51
PROVIDERS: ADMIT Internal Medicine; ATTEND Internal Medicine
DX: E86.0 Dehydration (principal); I47.1 Supraventricular tachycardia; I48.0 Paroxysmal atrial fibrillation; I10 Essential (primary) hypertension; K21.9 Gastro-esophageal reflux disease without esophagitis; F32.9 Major depressive disorder, single episode, unspecified; S00.03XA Contusion of scalp, initial encounter; N39.3 Stress incontinence (female) (male); K59.09 Other constipation; M48.02 Spinal stenosis, cervical region; D72.829 Elevated white blood cell count, unspecified; Z85.3 Personal history of malignant neoplasm of breast; W18.39XA Other fall on same level, initial encounter; Y93.89 Activity, other specified; Y92.89 Other specified places as the place of occurrence of the external cause
CPT/HCPCS: 36415; 70450-TC; 71045-TC-FY; 71275-TC; 72125-TC; 80048; 80053; 81003; 82550; 83690; 83735; 84100; 84484; 85025; 85027; 87040; 93005; 93010; 93306-TC; 93880-TC; 99285-25; G0378; J7030; Q9967